=== PATIENT | male | born 1950 | race Caucasian/White ===

== ENCOUNTER 2018-09-05 10:43 | Emergency (ER) | payer OTHER ==
[~2018-09-05] VITALS: Ht 170.2 cm; Wt 72.6 kg
[2018-09-05 11:50] LABS: CREATININE 1.1 mg/dL (0.6-1.3); POTASSIUM 3.9 mmol/L (3.5-5.1)
[2018-09-05 15:00] VITALS: BP 143/76
--- NOTE | 2018-09-05 15:19 | EKG ---
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
== END 2018-09-05 15:00 | disposition home or self-care (01) ==
LOC: M.ERS 10:43
PROVIDERS: Emergency Medicine Emergency Medical Services
DX: R51 Headache (principal); Z88.8 Allergy status to other drugs, medicaments and biological substances